=== PATIENT | female | born 1960 | race Caucasian/White ===

== ENCOUNTER 2024-03-21 12:29 | Emergency (ER) | payer OTHER, SELFPAY ==
--- NOTE | 2024-03-21 12:53 | EKG ---
Test Date: 2024-03-21 Test Time: 12:39:45 Veterinary Dentist: JAMIE MEASUREMENT RESULTS: Intervals: Rate: 53 MT: 158 QRSD: 88 QT: 468 QTc: 439 [place]: P: 43 MT: 158 QRS: 61 T: 49 INTERPRETIVE STATEMENTS: Sinus bradycardia Nonspecific T wave abnormality Abnormal ECG Compared to ECG 04/15/2016 13:27:33 T-wave abnormality now present Sinus rhythm no longer present Left ventricular hypertrophy no longer present Myocardial infarct finding no longer present Electronically Signed On 03-21-24 12:53:37 CDT by Josep Ernst
--- NOTE | 2024-03-21 13:04 | RAD REPORT ---
EXAMINATION: CT HEAD WITHOUT CONTRAST CLINICAL INDICATION: Female, 63 years old.headache, right sided, HTN;Headache TECHNIQUE: Axial CT images from the skull base to the vertex without intravenous contrast. Coronal an d sagittal reformatted images were created from the data set. One or more of the following dose reduction techniques were used: Automated exposure control, adjustment of the mA and/or kV according to patient size, and/or iterative reconstruction. Unless otherwise specified, incidental findings do not require dedicated imaging follow-up. [id number]. COMPARISON: 09/10/2016 FINDINGS: INTRACRANIAL: No acute intracranial hemorrhage. No hydrocephalus. No mass effect or midline shift. No significant white matter disease. VASCULATURE: No visualized abnormalities in the arteries or dural venous sinuses. SCALP/SKULL: No significant soft tissue or osseous abnormalities. SINUSES: The visualized paranasal sinuses and mastoid air cells are predominantly clear. IMPRESSION: No acute intracranial abnormality.
--- NOTE | 2024-03-21 13:45 | RAD REPORT ---
EXAMINATION: ONE VIEW CHEST XR CLINICAL INDICATION: Female, 63 years old.CHEST PAIN TECHNIQUE: 1 View, AP supine, X-ray of the chest was performed. [id number]. COMPARISON: 04/15/2016 FINDINGS: Lungs and pleura: Clear lungs. No effusion. Heart and mediastinum: Normal heart size. Unremarkable mediastinal contours. Osseous structures: No acute abnormality. Tubes/lines: None Other: None. IMPRESSION: No acute intrathoracic abnormality.
[2024-03-21 13:56] LABS: PT Prothrombin Time 11.7 SECONDS (9.4-12.5); Protime INR 1.05
[2024-03-21 14:00] LABS: Absolute Eosinophils 0.3 K/uL (0-0.5); Absolute Lymphocytes (CBC) 1.8 K/uL (0.7-4.9); Absolute Monocytes 0.5 K/uL (0.1-1.3); Absolute Neutrophil 3.8 K/uL (1.8-8.0); Basophils % 0.6 % (0-1.3); Eosinophils % 3.9 % (0-4.4); Hematocrit 27.7 % (36.0-45.0); Hemoglobin 8.4 g/dL (12.0-15.0); Lymphocytes % 28.8 % (15.3-44.8); MCH 20.2 pg (27.0-35.0); MCHC 30.2 g/dL (32.0-36.0); MPV 8.9 fL (7.6-11.3); Monocytes % 7.6 % (3.3-12.3); Neutrophils % 59.1 % (41.7-73.7); Platelets 167 thou/uL (152-406); RBC Red Blood Cell Count 4.14 M/uL (3.86-4.86); Red Cell Distribution Width 18.7 % (12.1-15.2)
[2024-03-21 14:13] LABS: Anion Gap 9.3 mEq/L (5.0-15.0)
[2024-03-21 14:14] LABS: Potassium 4.3 mEq/L (3.5-5.1)
[2024-03-21 14:47] LABS: White Blood Cell Scan OK (OK)
[2024-03-21 14:48] LABS: Blood Morphology Comment NOTED (NOT SEEN); Hypochromasia 1+; Microcytosis 1+; Platelet Estimate ADEQ
--- NOTE | 2024-03-21 15:40 | EDPHYS ---
Physician Documentation [facility] Name: Corrine Schneider Age: 63 yrs Sex: Female : 1960 Arrival Date: 03/21/2024 Time: 12:29 Bed 19 Private MD: ED Physician Cody Chaudhari HPI: 03/21 13:20 This 63 yrs old Female presents to ER via Ambulatory with complaints of Chest Pain, rn Headache. 13:20 The patient or guardian reports chest pain that is located primarily in the chest rn diffusely. Onset: last night. The pain does not radiate. Associated signs and symptoms: Pertinent positives: None. Pertinent negatives: abdominal pain, cough, diaphoresis, dizziness, headache, lower extremity swelling, palpitations, shortness of breath, syncope. The chest pain is described as aching. Duration: The patient or guardian reports multiple episodes, that are intermittent. Modifying factors: The symptoms are alleviated by nothing. the symptoms are aggravated by nothing. Severity of pain: At its worst the pain was mild in the emergency department the pain has resolved. The patient has experienced similar episodes in the past. Patient reports 2 days of right-sided headache and chest pain. Patient states chest pain is mid/central, nonradiating, not associated with shortness of breath or diaphoresis. No trauma. Patient reports has had a stroke in the past but denies previous stents. Also reports right-sided headache, negative for focal weakness or numbness. No vision changes. No balance issues. No speech changes.. Historical: - Allergies: 12:40 Tylenol; ll1 - PMHx: 12:40 CVA; Fibromyalgia; High Cholesterol; Hypertension; osteoarthritis; NM (osteoarthritis); ll1 stroke (osteoarthritis); - PSHx: 12:40 section; gastric bypass; ll1 - Immunization history:: Adult Immunizations up to date. - Infectious Disease History:: Denies. - Social history:: Smoking status: Patient reports the use of cigarette tobacco products, smokes one pack cigarettes per day. - Family history:: not pertinent. - Hospitalizations: : No recent hospitalization is reported. ROS: 13:21 Constitutional: Negative for fever, chills, and weight loss, Eyes: Negative for injury, rn pain, redness, and discharge, ENT: Negative for injury, pain, and discharge, Neck: Negative for injury, pain, and swelling, Cardiovascular: Negative for palpitations, and edema, Respiratory: Negative for shortness of breath, cough, wheezing, and pleuritic chest pain, Abdomen/GI: Negative for abdominal pain, nausea, vomiting, diarrhea, and constipation, MS/Extremity: Negative for injury and deformity, Skin: Negative for injury, rash, and discoloration, Neuro: Positive for headache, negative for focal weakness or numbness or seizure Exam: 13:21 Constitutional: This is a well developed, well nourished patient who is awake, alert, rn and in no acute distress. Ambulatory to and from triage without assistance or difficulty. Normal gait. No evidence of ataxia. Carrying her own bags as well as well as a drink. Head/Face: Normocephalic, atraumatic. Neck: No meningismus Cardiovascular: Regular rate and rhythm. No pulse deficits. Respiratory: No increased work of breathing, no retractions or nasal flaring. Abdomen/GI: Soft, nontender MS/ Extremity: Pulses equal, no cyanosis. Neurovascular intact. Full, normal range of motion. Equal circumference. Neuro: Awake and alert, GCS 15, oriented to person, place, time, and situation. Cranial nerves II-XII grossly intact. Motor strength 5/5 in all extremities. Sensory grossly intact. Cerebellar exam normal. Normal gait. 17:04 ECG was reviewed by the Attending Physician. rn Vital Signs: 12:41 BP 176 / 93; Pulse 56; Resp 17; Temp 97.2; Pulse Ox 100% on R/A; Weight 61.23 kg; ll1 Height 5 ft. 2 in. ; Pain 0/10; 14:24 BP 144 / 79; Pulse 53; Resp 16 S; Pulse Ox 95% on R/A; rs5 15:50 BP 137 / 81; Pulse 64; Resp 17; Pulse Ox 99% on R/A; rs5 12:41 Body Mass Index 24.69 (61.23 kg, 157.48 cm) ll1 12:41 Pain Scale: Adult ll1 MDM: 12:37 Patient medically screened. rn 15:37 Differential diagnosis: acute myocardial infarction, acute pericarditis, anxiety, rn coronary artery disease pleurisy, pneumothorax, Hypertension, CVA, TIA, hypertensive headache. Data reviewed: vital signs, nurses notes, lab test result(s), EKG, radiologic studies, CT scan, plain films, and as a result, I will discharge patient. Independent interpretation of the following test(s) in the Emergency Department EKG: See my EKG interpretation above X-Ray: My interpretation is Chest x-ray images negative for pneumonia or pneumothorax per my interpretation. Counseling: I had a detailed discussion with the patient and/or guardian regarding the historical points, exam findings, and any diagnostic results supporting the discharge/admit diagnosis, lab results, radiology results, the need for outpatient follow up, to return to the emergency department if symptoms worsen or persist or if there are any questions or concerns that arise at home. Response to treatment: the patient's symptoms have resolved after treatment, the patient's condition has returned to base line, the patient is now symptom free, and as a result, I will discharge patient. Special discussion: Based on the patient's history, exam, and Dx evaluation, there is no indication for emergent intervention or inpatient Tx. It is understood by the patient/guardian that if the Sx's persist or worsen they need to return immediately for re-evaluation. I discussed with the patient/guardian in detail that at this point there is no indication for admission to the hospital. It is understood, however, that if the symptoms persist or worsen the patient needs to return immediately for re-evaluation. ED course: No acute findings on workup, patient asymptomatic, will discharge home with instructions to take blood pressure medication as prescribed and return precautions given and understood.. 03/21 12:44 Order name: Basic Metabolic Panel; Complete Time: 15:27 rn 03/21 12:44 Order name: CBC with Diff; Complete Time: 15:27 rn 03/21 12:44 Order name: NT PRO-BNP; Complete Time: 15:27 rn 03/21 12:44 Order name: PT-INR; Complete Time: 15:27 rn 03/21 12:44 Order name: Troponin HS; Complete Time: 15:27 rn 03/21 14:48 Order name: CBC Smear Scan; Complete Time: 15:27 EDVT 03/21 12:44 Order name: XRAY Chest (1 view); Complete Time: 13:49 rn 03/21 12:44 Order name: CT Head Brain wo Cont; Complete Time: 13:19 rn 03/21 12:44 Order name: EKG; Complete Time: 12:45 rn 03/21 12:44 Order name: Cardiac monitoring; Complete Time: 14:00 rn 03/21 12:44 Order name: EKG - Nurse/Tech; Complete Time: 12:48 rn 03/21 12:44 Order name: IV Saline Lock; Complete Time: 14:03 rn 03/21 12:44 Order name: Labs collected and sent; Complete Time: 14:00 rn 03/21 12:44 Order name: O2 Per Protocol; Complete Time: 14:00 rn 03/21 12:44 Order name: O2 Sat Monitoring; Complete Time: 14:00 rn EC:04 Rate is 53 beats/min. Rhythm is regular. QRS [place] is Normal. [place] interval is normal. QRS rn interval is normal. QT interval is normal. No Q waves. T waves are Normal. No ST changes noted. Clinical impression: Sinus bradycardia. Interpreted by me. Reviewed by me. Administered Medications: No medications were administered Disposition Summary: 03/21/24 15:39 Discharge Ordered Notes: Location: Home rn Problem: new rn Symptoms: have improved rn Condition: Stable rn Diagnosis - Chest pain, unspecified rn - Headache rn - Essential (primary) hypertension rn Followup: rn - With: Private Physician - When: As needed - Reason: Recheck today's complaints, Re-evaluation by your physician Discharge Instructions: - Discharge Summary Sheet rn - Nonspecific Chest Pain, Adult rn - General Headache Without Cause rn - Hypertension, Adult rn Forms: - Medication Reconciliation Form rn - Antibiotic managing attorney - Prescription Opioid Use rn - Patient Portal Instructions rn - Leadership Thank You Letter rn Signatures: Dispatcher [employer] Cody Rubio MD MD rn Lewis, Lynsay RN RN ll1 Philip Ruth RN RN rs5
--- NOTE | 2024-03-21 15:40 | ER ---
Nurse's Notes [facility] Name: Corrine Schneider Age: 63 yrs Sex: Female : 1960 Arrival Date: 03/21/2024 Time: 12:29 Bed 19 Private MD: Diagnosis: Chest pain, unspecified;Headache;Essential (primary) hypertension Presentation: 03/21 12:41 Chief complaint: Patient states: CP and R sided RIVERA since 03/19 at 1130 PM. Sensitive to ll1 light and some weakness. No fever. Coronavirus screen: Client denies travel out of the [place] in the last 14 days. At this time, the client does not indicate any symptoms associated with coronavirus-19. Ebola Screen: Patient denies travel to an Ebola-affected area in the 21 days before illness onset. Initial Sepsis Screen: Does the patient meet any 2 criteria? No. Patient's initial sepsis screen is negative. Does the patient have a suspected source of infection? No. Patient's initial sepsis screen is negative. Risk Assessment: Do you want to hurt yourself or someone else? Patient reports no desire to harm self or others. Onset of symptoms was March 19, 2024. 12:41 Method Of Arrival: Ambulatory ll1 12:41 Acuity: YOBANI 3 ll1 Historical: - Allergies: 12:40 Tylenol; ll1 - PMHx: 12:40 CVA; Fibromyalgia; High Cholesterol; Hypertension; osteoarthritis; [place] (osteoarthritis); ll1 stroke (osteoarthritis); - PSHx: 12:40 section; gastric bypass; ll1 - Immunization history:: Adult Immunizations up to date. - Infectious Disease History:: Denies. - Social history:: Smoking status: Patient reports the use of cigarette tobacco products, smokes one pack cigarettes per day. - Family history:: not pertinent. - Hospitalizations: : No recent hospitalization is reported. Screenin:42 [facility] ED Fall Risk Assessment (Adult) History of falling in the last 3 months, rs5 including since admission No falls in past 3 months (0 pts) Confusion or Disorientation No (0 pts) Intoxicated or Sedated No (0 pts) Impaired Gait Yes (1 pt) Mobility Assist Device Used No (0 pt) Altered Elimination No (0 pt) Score/Fall Risk Level 0 - 2 = Low Risk Oriented to surroundings, Maintained a safe environment. Abuse screen: Denies threats or abuse. Nutritional screening: No deficits noted. Tuberculosis screening: No symptoms or risk factors identified. Assessment: 12:40 General: Appears in no apparent distress. uncomfortable, Behavior is calm, cooperative. rs5 Pain: Complains of pain in chest Pain does not radiate. Pain currently is 6 out of 10 on a pain scale. Quality of pain is described as aching, Pain began Is continuous. Neuro: Level of Consciousness is awake, alert, obeys commands, Oriented to person, place, time, situation. Cardiovascular: Patient's skin is warm and dry. Rhythm is. Respiratory: Airway is patent Respiratory effort is even, unlabored, Respiratory pattern is regular, symmetrical. GI: Abdomen is round non-distended, Abd is soft and non tender X 4 quads. : No signs and/or symptoms were reported regarding the genitourinary system. EENT: No signs and/or symptoms were reported regarding the EENT system. Derm: Skin is intact, Skin is clammy. Musculoskeletal: Range of motion: intact in all extremities, Reports generalized weakness. 12:42 Pain: Complains of pain in head Pain currently is 6 out of 10 on a pain scale. Quality rs5 of pain is described as aching, Is continuous. 13:30 Reassessment: Patient and/or family updated on plan of care and expected duration. Pain rs5 level reassessed. Patient is alert, oriented x 3, equal unlabored respirations, skin warm/dry/pink. 14:23 Reassessment: Patient appears in no apparent distress at this time. No changes from kc6 previously documented assessment. Patient and/or family updated on plan of care and expected duration. Pain level reassessed. Patient is alert, oriented x 3, equal unlabored respirations, skin warm/dry/pink. 15:48 Reassessment: Patient and/or family updated on plan of care and expected duration. Pain rs5 level reassessed. Patient is alert, oriented x 3, equal unlabored respirations, skin warm/dry/pink. Vital Signs: 12:41 BP 176 / 93; Pulse 56; Resp 17; Temp 97.2; Pulse Ox 100% on R/A; Weight 61.23 kg; ll1 Height 5 ft. 2 in. ; Pain 0/10; 14:24 BP 144 / 79; Pulse 53; Resp 16 S; Pulse Ox 95% on R/A; rs5 15:50 BP 137 / 81; Pulse 64; Resp 17; Pulse Ox 99% on R/A; rs5 12:41 Body Mass Index 24.69 (61.23 kg, 157.48 cm) ll1 12:41 Pain Scale: Adult ll1 ED Course: 12:32 Patient arrived in ED. ra3 12:37 Cody Chaudhari MD is Attending Physician. rn 12:39 Arm band placed on. ll1 12:40 Patient has correct armband on for positive identification. Placed in gown. Bed in low rs5 position. Call light in reach. Side rails up X2. Client placed on continuous cardiac and pulse oximetry monitoring. NIBP monitoring applied. manager monitoring on. Pulse ox on. 12:40 Patient maintains SpO2 saturation greater than 95% on room air. rs5 12:43 Triage completed. ll1 12:48 EKG done, by ED staff, reviewed by Cody Chaudhari MD. tm6 12:49 Patient placed in an exam room, on a stretcher. ll1 12:50 Missed attempt(s): 24 gauge in left. rs5 12:54 CT Head Brain wo Cont In Process Unspecified. EDMS 13:31 No provider procedures requiring assistance completed. rs5 13:33 Missed attempt(s): 22 gauge in right forearm. Bleeding controlled, band aid applied, ll1 catheter tip intact. 13:40 XRAY Chest (1 view) In Process Unspecified. EDMS 13:44 Initial lab(s) drawn, by ut, sent to lab. Inserted saline lock: 22 gauge in right ph forearm, using aseptic technique. Blood collected. Flushed with 10 mL NS. 14:00 Cheryl Baird, RN is Primary Nurse. kc6 15:48 Provided Education on: discharge instructions . rs5 15:53 IV discontinued, intact, bleeding controlled, No redness/swelling at site. Pressure rs5 dressing applied. Administered Medications: No medications were administered Medication: 12:40 VIS not applicable for this client. rs5 Outcome: 15:39 Discharge ordered by . rn 15:53 Discharged to home ambulatory, rs5 15:53 Condition: stable rs5 15:53 Discharge instructions given to patient, family, Instructed on discharge instructions, follow up and referral plans. Demonstrated understanding of instructions, follow-up care, 15:54 Patient left the ED. rs5 Signatures: Dispatcher [employer] EDMS Cody Chaudhari MD MD rn Hall, Patricia RN Rogelio Griffin ph, RN RN ll1 Cheryl Baird RN RN kc6 Philip Ruth RN RN rs5 Oma Tapia RN RN 6 Dilcia Tucker 3 Corrections: (The following items were deleted from the chart) 13:31 12:40 Musculoskeletal: Range of motion: intact in all extremities, rs5 rs5 15:56 14:24 BP 144 / 79; Pulse 53bpm; Resp 14bpm; Spontaneous; Pulse Ox 95% RA; kc6 rs5
[2024-03-22 06:20] VITALS: BP 176/93; TEMP 97.2; O2SAT 100
== END 2024-03-21 15:54 | disposition home or self-care (01) ==
LOC: ER 12:29
DX: R07.9 Chest pain, unspecified (principal); R51.9 Headache, unspecified; E78.00 Pure hypercholesterolemia, unspecified; I10 Essential (primary) hypertension; M81.0 Age-related osteoporosis without current pathological fracture; I25.2 Old myocardial infarction; M79.7 Fibromyalgia; F17.210 Nicotine dependence, cigarettes, uncomplicated; Z86.73 Personal history of transient ischemic attack (TIA), and cerebral infarction without residual deficits
CPT/HCPCS: 36415; 70450; 71045; 80048; 83880; 84484; 85025; 85610; 93005; 99284